=== PATIENT | female | born 1965 | race Caucasian/White ===

== ENCOUNTER 2017-09-21 08:47 | Emergency (ER) | payer BC ==
[~2017-09-21] VITALS: Ht 157.5 cm; Wt 66.8 kg
[2017-09-21] MEDS ORDERED: ketorolac trometh. 30mg/ml inj. IV ONE (08:55)
[2017-09-21] MEDS ORDERED: ondansetron/PF 4mg/2ml inj IV ONE (08:55)
[2017-09-21] MEDS ORDERED: normal saline 1000ML IV soln IVB ONE (08:55)
[2017-09-21 09:06] LABS: BASOPHILS # (AUTO) 0.1 X10'3 (0-0.2); BASOPHILS % (AUTO) 0.6 % (0-1); EOSINOPHILS # (AUTO) 0.1 X10'3 (0-0.9); EOSINOPHILS % (AUTO) 1.2 % (0-6); HEMATOCRIT 42.2 % (35.0-45.0); HEMOGLOBIN 13.9 g/dl (12.0-16.0); LYMPHOCYTES # (AUTO) 3.2 X10'3 (1.1-4.8); LYMPHOCYTES % (AUTO) 33.6 % (21-51); MEAN CORPUSCULAR HEMOGLOBIN 28.4 PG (27.0-31.0); MEAN CORPUSCULAR HGB CONC 32.9 % (33.0-36.5); MEAN CORPUSCULAR VOLUME 86.3 FL (78-98); MEAN PLATELET VOLUME 8.1 FL (7.4-10.4); MONOCYTES # (AUTO) 0.6 X10'3 (0-0.9); MONOCYTES % (AUTO) 6.6 % (2-12); NEUTROPHILS # (AUTO) 5.5 X10'3 (1.8-7.7); PLATELET COUNT 267 X10'3 (140-440); RED BLOOD COUNT 4.89 X10'6 (4.20-5.60); RED CELL DISTRIBUTION WIDTH 13.1 % (11.5-14.5); WHITE BLOOD COUNT 9.4 X10'3 (4.5-11.0)
[2017-09-21] MEDS ORDERED: proCHLORperazine 10 MG/2 ml inj IV ONE (09:10)
[2017-09-21] MEDS: MORPHINE 2MG in 2ml NS syringe IV PRN ×2 (09:12→09:30)
[2017-09-21 09:21] LABS: ALANINE AMINOTRANSFERASE 31 U/L (12-78); ALBUMIN 3.8 G/DL (3.4-5.0); ALBUMIN/GLOBULIN RATIO 1.1 (1.1-1.5); ALKALINE PHOSPHATASE 85 IU/L (46-116); ANION GAP 10 (8-16); ASPARTATE AMINO TRANSFERASE 19 U/L (10-37); BILIRUBIN,TOTAL 0.4 MG/DL (0.1-1.0); BLOOD UREA NITROGEN 9 MG/DL (7-18); BUN/CREATININE RATIO 9.4 (6.6-38.0); CALCIUM 9.1 MG/DL (8.5-10.1); CHLORIDE 107 MMOL/L (99-107); CREATININE 0.96 MG/DL (0.40-0.90); GLUCOSE 122 MG/DL (70-104); LIPASE 136 U/L (73-393); POTASSIUM 3.7 MMOL/L (3.5-5.1); SODIUM 139 MMOL/L (135-145); TOTAL CARBON DIOXIDE 22.1 MMOL/L (24-32); TOTAL PROTEIN 7.3 G/DL (6.4-8.2); eGFR 62 ML/MIN
[2017-09-21] MEDS ORDERED: normal saline 1000ml 1,000 ML IV ONE (10:25)
[2017-09-21] MEDS ORDERED: HYDROcodone/acetaminophen 10/325mg tab PO ONE ×2 (10:25→10:50)
[2017-09-21] MEDS ORDERED: FLO0.4C PO (10:48)
[2017-09-21] MEDS ORDERED: HYDR-565 PO (10:48)
[2017-09-21] MEDS ORDERED: IBUP-1984 PO (10:48)
[2017-09-21] MEDS ORDERED: tamsulosin 0.4mg capsule PO STA (10:51)
[2017-09-21] MEDS ORDERED: ONDA8TAB9 PO (11:04)
[2017-09-21] MEDS: ondansetron 4mg rapidly disintigrating tab PO ONE ×2 (11:15→11:21)
[2017-09-21 11:16] VITALS: BP 94/55
== END 2017-09-21 11:21 | disposition home or self-care (01) ==
LOC: ER 08:48
DX: N23 Unspecified renal colic (principal); N13.2 Hydronephrosis with renal and ureteral calculous obstruction; Z79.899 Other long term (current) drug therapy; Z88.5 Allergy status to narcotic agent; Z88.8 Allergy status to other drugs, medicaments and biological substances
CPT/HCPCS: 36415; 74176; 80053; 83690; 85025; 96361; 96374; 96375; 99285; J0780; J1885; J2274; J7030

== ENCOUNTER 2020-08-27 20:10 | Emergency (ER) | payer BC ==
[~2020-08-27] VITALS: Ht 154.9 cm; Wt 67.3 kg
[~2020-08-27 20:10] MED LIST: ONDA8TAB9 PO
[2020-08-27 22:27] VITALS: BP 106/48
== END 2020-08-27 22:28 | disposition home or self-care (01) ==
LOC: ER 20:12
DX: S06.9X9A Unspecified intracranial injury with loss of consciousness of unspecified duration, initial encounter (principal); S01.21XA Laceration without foreign body of nose, initial encounter; S50.01XA Contusion of right elbow, initial encounter; M25.552 Pain in left hip; M25.522 Pain in left elbow; Z88.1 Allergy status to other antibiotic agents; Z88.6 Allergy status to analgesic agent; V80.010A Animal-rider injured by fall from or being thrown from horse in noncollision accident, initial encounter; Y93.89 Activity, other specified; Y92.89 Other specified places as the place of occurrence of the external cause; Y99.8 Other external cause status
CPT/HCPCS: 70450; 70486; 72125; 99285